=== PATIENT | female | born 1985 | race Native Hawaiian/Other Pacific Islander ===

== ENCOUNTER 2017-12-01 13:08 | Emergency (ER) | payer BC ==
[2017-12-01 13:14] VITALS: TEMP 97; O2SAT 100
[2017-12-01] MEDS ORDERED: Sodium Chloride 0.9% 1,000 ML IV STA (13:59)
[2017-12-01 14:27] LABS: HEMOGLOBIN 14.3 g/dL (12.0-16.0); LYMPH % 7.7 % (20.0-40.0); MEAN CORPUSCULAR HEMOGLOBIN 29.3 pg (27.0-31.0); MEAN CORPUSCULAR HGB CONC 33.3 g/dL (33.0-37.0); MEAN PLATELET VOLUME 8.1 fl (7.2-11.7); MONO % 3.1 % (0.0-10.0); PLATELET COUNT 241 K/uL (130-400); RBC 4.89 Mil/uL (3.80-5.20); RED CELL DISTRIBUTION WIDTH 13.3 % (11.5-14.5); WHITE BLOOD COUNT 14.9 K/uL (4.8-10.8)
[2017-12-01 14:28] LABS: BASO % 0.2 % (0.0-2.0); LYMPH # 1.1 K/uL (1.0-4.3); MONO # 0.5 K/uL (0.0-0.8); NEUT # 13.3 K/uL (1.8-7.0)
[2017-12-01 15:03] LABS: ALB/GLOB RATIO 1.4 (1.0-2.1); ALBUMIN 4.9 g/dL (3.5-5.0); ALT/SGPT 23 U/L (9-52); AST/SGOT 31 U/L (14-36); BLOOD UREA NITROGEN 10 mg/dl (7-17); CALCIUM 9.7 mg/dL (8.4-10.2); GFR NON-AFRICAN AMERICAN > 60; LIPASE 72 U/L (23-300)
[2017-12-01 16:13] LABS: LYMPHOCYTE 7 % (20-50); PLATELET ESTIMATE NORMAL (NORMAL); TOTAL CELLS COUNTED 100
[2017-12-01 16:33] LABS: MONOCYTE 3 % (0-10); NEUTROPHIL 90 % (42-75)
--- NOTE | 2017-12-01 16:47 | US ---
Date of service: 12/01/2017 HISTORY: Periumbilical pain COMPARISON: None. TECHNIQUE: Sonographic evaluation of the right upper quadrant of the abdomen. FINDINGS: LIVER: Measures 13.1 cm in length. Normal echogenicity of the liver parenchyma. No mass. No intrahepatic bile duct dilatation. GALLBLADDER: Unremarkable. No gallstones. COMMON BILE DUCT: Measures 3.4 mm. No stones. No dilatation. PANCREAS: Unremarkable as visualized. No mass. No ductal dilatation. RIGHT KIDNEY: Measures 11.1 x 4.1 x 4.3 cm in length. Normal echogenicity. No calculus, mass, or hydronephrosis. AORTA: No aneurysmal dilatation. IVC: Unremarkable. OTHER FINDINGS: None . IMPRESSION: Unremarkable limited right upper quadrant ultrasound
--- NOTE | 2017-12-01 17:05 | ED PDOC ---
HPI: Abdomen Time Seen by Provider: 12/01/17 13:58 Chief Complaint (Nursing): Abdominal Pain History Per: Patient History/Exam Limitations: no limitations Additional Complaint(s): 32-year-old female otherwise in good health with no significant past medical history, presents to the emergency room complaining of gradual onset of constant periumbilical abdominal pain associated with nausea. Patient states that the pain started this morning 2 hours after she ate a small breakfast. States that the pain typically starts in the morning after eating a small meal. Patient states that she has had intermittent episodes of similar pain in the past since she was a teenager and has been evaluated in the past but without a full GI evaluation. Otherwise: (-) vomiting, (-) diarrhea, (-) fever, (-) urinary symptoms, (+) normal appetite, (-) melena, (-) hematochezia. Has no history of prior abdominal surgery. Past Medical History Vital Signs: Last Vital Signs Temp 97.0 F L 12/01/17 13:10 Pulse 54 L 12/01/17 13:10 Resp 17 12/01/17 13:10 BP 110/68 12/01/17 13:10 Pulse Ox 100 12/01/17 18:02 - Medical History PMH: No Chronic Diseases - Family History Family History: States: Hypertension Other Family History: +FHx Ovarian cancer, which the patient was tested negative for - Immunization History Hx Tetanus Toxoid Vaccination: No Hx Influenza Vaccination: No Hx Pneumococcal Vaccination: No - Home Medications Home Medications: Ambulatory Orders Medication Instructions Recorded Esomeprazole Magnesium [Nexium] 20 mg PO DAILY #30 cap 12/01/17 - Allergies Allergies/Adverse Reactions: Allergies Allergy/AdvReac Type Severity Reaction Status Date / Time No Known Allergies Allergy Verified 12/01/17 13:10 Review of Systems Constitutional: Negative for: Fever, Chills Cardiovascular: Negative for: Chest Pain, Palpitations Respiratory: Negative for: Cough, Shortness of Breath Gastrointestinal: Positive for: Nausea, Vomiting, Abdominal Pain. Negative for : Diarrhea Genitourinary Female: Negative for: Dysuria, Frequency Musculoskeletal: Negative for: Neck Pain, Back Pain Skin: Negative for: Rash, Lesions Neurological: Negative for: Weakness, Numbness Physical Exam - Reviewed Vital Signs Reviewed: Yes - Physical Exam Appears: Positive for: Well, Non-toxic, In Acute Distress (+mild painful distress) Head Exam: Positive for: ATRAUMATIC, NORMAL INSPECTION, NORMOCEPHALIC Skin: Positive for: Normal Color, Warm, Dry Eye Exam: Positive for: EOMI, Normal appearance, PERRL ENT: Positive for: Normal ENT Inspection, Other (+Mucous membranes dry) Neck: Positive for: Normal, Painless ROM, Supple Cardiovascular/Chest: Positive for: Regular Rate, Rhythm. Negative for: Murmur Respiratory: Positive for: Normal Breath Sounds. Negative for: Rales, Rhonchi, Wheezing Gastrointestinal/Abdominal: Positive for: Normal Exam, Bowel Sounds, Soft, Tenderness (+Mild periumbilical tenderness). Negative for: Organomegaly, Mass, Distended, Guarding, Rebound Back: Positive for: Normal Inspection. Negative for: L CVA Tenderness, R CVA Tenderness, Vertebral Tenderness Extremity: Positive for: Normal ROM. Negative for: Tenderness, Deformity, Swelling Neurologic/Psych: Positive for: Alert, shipping and receiving associate II-XII (Intact), Oriented (3). Negative for: Motor/Sensory Deficits - Laboratory Results Result Diagrams: 12/01/17 14:20 12/01/17 14:20 - ECG O2 Sat by Pulse Oximetry: 100 Medical Decision Making Medical Decision Making: Plan : - IV - Labs - Udip - Uhcg - US abd - Pepcid IV / zofran IV / toradol IV Labs reviewed : wbc 14, LFTS & lipase wnl. Uhcg (-) Udip (-) for infection / blood / protien, (+) trace ketones US Abd : FINDINGS: LIVER: Measures 13.1 cm in length. Normal echogenicity of the liver parenchyma. No mass. No intrahepatic bile duct dilatation. GALLBLADDER: Unremarkable. No gallstones. COMMON BILE DUCT: Measures 3.4 mm. No stones. No dilatation. PANCREAS: Unremarkable as visualized. No mass. No ductal dilatation. RIGHT KIDNEY: Measures 11.1 x 4.1 x 4.3 cm in length. Normal echogenicity. No calculus, mass, or hydronephrosis. AORTA: No aneurysmal dilatation. IVC: Unremarkable. OTHER FINDINGS: None . IMPRESSION: Unremarkable limited right upper quadrant ultrasound On reevaluation, patient reports improvement of symptoms, denies any abdominal pain, nausea, vomiting or any episodes of diarrhea while in the emergency room. On exam, patient remains awake alert and oriented 3 in no acute distress. Patient appears cheerful and in good spirits. Abdomen soft and nontender, no guarding, no rebound, repeat neuro exam shows no focal findings. Diagnostic results discussed the patient in great detail. Diagnosis of possible dyspepsia discussed with patient. Based on history, exam and diagnostic results plan will be for outpatient follow-up. Advised to follow up with primary care physician and GI referral provided in 1- 2 days without fail. Advised to take medication as prescribed. Return to the emergency room at any time for any new or worsening symptoms. Patient states she fully agrees with and understands discharge instructions. States that she agrees with the plan and disposition. Verbalized and repeated discharge instructions and plan. I have given the patient opportunity to ask any additional questions. Disposition - Clinical Impression Clinical Impression: Abdominal pain, Dyspepsia - Patient ED Disposition Is Patient to be Admitted: No Counseled Patient/Family Regarding: Studies Performed, Diagnosis, Need For Followup, Rx Given - Disposition Referrals: Juan Antonio Aguillon MD [Medical Doctor] - Disposition: Routine/Home Disposition Time: 18:00 Condition: STABLE Additional Instructions: Thank you for letting us take care of you today. You were treated for abdominal pain, possible dyspepsia. The emergency medical care you received today was directed at your acute symptoms. If you were prescribed any medication, please fill it and take as directed. It may take several days for your symptoms to resolve. Return to the Emergency Department if your symptoms worsen, do not improve, or if you have any other problems. Please contact your doctor in 2 days for re-evaluation and follow up / or call one of the physicians/clinics you have been referred to that are listed on the Patient Visit Information form that is included in your discharge packet. Bring any paperwork you were given at discharge with you along with any medications you are taking to your follow up visit. Our treatment cannot replace ongoing medical care by a primary care provider (PCP) outside of the emergency department. Thank you for allowing the [facility] team to be part of your care today. Prescriptions: Esomeprazole Magnesium [Nexium] 20 mg PO DAILY #30 cap Instructions: Dyspepsia, Acute Abdomen (Belly Pain) Forms: [employer] (Yi)
[2017-12-01 18:26] VITALS: BP 110/70; PULSE 68; RESP 15
== END 2017-12-01 18:20 | disposition home or self-care (01) ==
LOC: H.ER 13:08
DX: R10.9 Unspecified abdominal pain (principal); R10.13 Epigastric pain
CPT/HCPCS: 76705; 80053; 81025; 83690; 85025; 96361; 96374; 96375; 99283; J1885; J2405; J7030